=== PATIENT | female | born 1940 | race Caucasian/White ===

== ENCOUNTER 2016-09-01 15:00 | Inpatient (IN) | payer MEDICARE, OTHER ==
[~2016-09-01] VITALS: Ht 157.5 cm; Wt 73.6 kg
--- NOTE | ~2016-09-01 | PUL ---
PATIENT'S NAME: JANEE COOMBS [facility] AGE: 76 Y [address] ROOM: [address] [address] LOCATION: N ADMIT DATE: 09/08/2016 Pulmonary DISCHARGE DATE: 09/10/2016 FAMILY PHYSICIAN: Vincent Barrow MD ATTENDING PHYSICIAN: Gutierrez Murray NAME OF PROCEDURE: Nighttime Oximetry DATE OF PROCEDURE: September 09 to September 10, 2016 REASON FOR EXAM: Nocturnal hypoxemia RESULTS: Total recording time was 10 hours, 36 minutes, and 24 seconds. The total valid sampling time was 10 hours, 35 minutes, and 32 seconds. The highest pulse was 78 beats per minute, lowest pulse was 51 beats per minute, and mean pulse of 60 beats per minute. The highest SpO2 was 100%, lowest SpO2 was 71%, with mean SpO2 of 88.9%. The time with SpO2 less than 89% was 4 hours, 2 minutes, and 4 seconds which is 38% of the total valid sampling time. The desaturation index was 40.5. PHYSICIAN INTERPRETATION: The patient's meet Medicare criteria for nighttime oxygen category one. The patient has a very high desaturation event index. There is a high possibility of obstructive sleep apnea. Clinical correlation is recommended. MD ARNOLD AVENDANO/saroj /[id number] dtt: 09/21/16 1052 , Lenin Vines. dtd: 09/15/16 1119
--- NOTE | ~2016-09-01 | DS ---
PATIENT'S NAME: JANEE COOMBS [facility] AGE: 76 Y [address] ROOM: [place] [address] LOCATION: [facility] ADMIT DATE: 09/08/2016 Discharge Summary DISCHARGE DATE: 09/10/2016 FAMILY PHYSICIAN: Vincent Barrow MD ATTENDING PHYSICIAN: Gutierrez Murray PRIMARY DIAGNOSIS: Degenerative joint disease of the left knee. SECONDARY DIAGNOSES: 1. History of anxiety disorder. 2. History of stress incontinence. 3. Nocturnal hypoxia. 4. Hypercholesterolemia. 5. Osteopenia. 6. Hypertension. 7. History stage I breast cancer. 8. Obesity. 9. BMI of 30. PROCEDURE PERFORMED: Left total knee arthroplasty with computer navigation. HISTORY: The patient is a 76-year-old female, who presents with advanced left knee degenerative joint disease and associated severely compromised activities of daily living. The patient has decided to proceed with total knee arthroplasty after having been thoroughly counseled regarding the risks, benefits, limitations and alternatives. Please refer to the outpatient clinic notes and admission history and physical for this patient. HOSPITAL COURSE: The patient underwent a left total knee arthroplasty on 09/08/2016 without complications. General endotracheal anesthesia plus adductor canal block and periarticular local anesthesia was utilized. The patient received 24 hours of perioperative prophylactic antibiotics and remained hemodynamically stable, neurovascularly intact throughout the entire hospital course. The postoperative prophylactic deep venous thrombosis prophylaxis consisted of Xarelto 10 mg, early mobilization and pneumatic compression devices. Daily physical therapy for gait training, transfer training range of motion and quadriceps isometric exercises were received. The patient progressed well in physical therapy. On the date of discharge, 09/10/2016, the incision at the knee was healing well and showed no signs of infection. DISPOSITION: Home. DISCHARGE ACTIVITY: The patient is to bear weight as tolerated with range of motion and quadriceps isometric exercises as instructed. The operative PATIENT'S NAME: JANEE COOMBS [facility] AGE: 76 Y [address] ROOM: [place] [address] LOCATION: [facility] ADMIT DATE: 09/08/2016 Discharge Summary DISCHARGE DATE: 09/10/2016 FAMILY PHYSICIAN: Vincent Barrow MD ATTENDING PHYSICIAN: Gutierrez Murray extremity is to be elevated at least 90% of the day. There is to be sterile 4x4 gauze dressings to the incision daily. Dr. Murray is to be notified immediately if there is any increased pain, fevers, chills erythema or drainage. DISCHARGE MEDICATIONS: Include: 1. Xarelto 10 mg, take 1 tab p.o. daily for DVT prevention. 2. Nucynta 50 mg, take 1 tablet to 2 tablets every 4 hours as needed for pain. FOLLOWUP: Followup appointment is to be with Dr. Murray on 09/15/2016 for initial postoperative evaluation and x-rays at that time. RON HOYT FOR MD HERLINDA CODY/jimbol /[id number] d: 09/14/16 0858 t: 09/15/16 1109, DISCHARGE SUMMARY
--- NOTE | ~2016-09-01 | OR ---
PATIENT'S NAME: ELIZABETH CORTEZ [facility] AGE: 76 Y [address] ROOM: [address] [address] LOCATION: [facility] ADMIT DATE: 09/08/2016 OR/Procedure Report DISCHARGE DATE: FAMILY PHYSICIAN: Vincent Barrow MD ATTENDING PHYSICIAN: JUAN LUIS CASEY SURGEON: Juan Luis Casey MD RISK TECH: 1. RON Hay. 2. Emanuel Castro CST/GERMAN. DATE OF PROCEDURE: 09/08/2016 PREOPERATIVE DIAGNOSIS: Degenerative joint disease, left knee. POSTOPERATIVE DIAGNOSIS: Degenerative joint disease, left knee. OPERATION: Left total knee arthroplasty with computer navigation. ANESTHESIA: General endotracheal anesthesia plus adductor canal block plus periarticular local anesthesia (ropivacaine with epinephrine and Toradol). ESTIMATED BLOOD LOSS: Less than 10 mL. DRAIN: None. SPECIMEN: None. COMPLICATIONS: None. IMPLANT SYSTEM: Brilliant Triathlon. 1. Size 4 left posterior stabilized femoral component. 2. Size 3 universal modular tibial baseplate. 3. A 13 mm posterior stabilized size 3 X3 tibial polyethylene insert. 4. A 29 mm oval X3 patellar component. INDICATIONS FOR SURGERY: Elizabeth Cortez is a 76-year-old female who presents with advanced left knee degenerative joint disease and associated severely compromised activities of daily living. The patient has decided to proceed with knee replacement after having been thoroughly counseled regarding the associated risks, benefits, and limitations. We have specifically reviewed the risks and implications of infection, deep venous thrombosis, pulmonary embolism, mortality, neurovascular complications, blood transfusion (and associated potential for disease transmission or transfusion reaction), stiffness, instability, mechanical deterioration of the components (due to wear and or loosening), and the potential need for revision. We have also emphasized the importance of active involvement and compliance with post- operative physical therapy as a means of optimizing range of motion and PATIENT'S NAME: ELIZABETH CORTEZ [facility] AGE: 76 Y [address] ROOM: [address] [address] LOCATION: [facility] ADMIT DATE: 09/08/2016 OR/Procedure Report DISCHARGE DATE: FAMILY PHYSICIAN: Vincent Barrow MD ATTENDING PHYSICIAN: JUAN LUIS CASEY functional recovery. Informed consent has been granted. DESCRIPTION OF PROCEDURE: The patient was positioned supine after administration of anesthesia and prophylactic antibiotics. A well-padded pneumatic tourniquet was placed around the left proximal thigh, and the left lower extremity was prepped and draped with vigilant sterile technique. The patient's name as well as the intended operative side and procedure were confirmed with a verbal time-out involving myself, the circulating nurse, the scrub nurse, and the anesthesiologist. Examination under anesthesia demonstrated no active skin lesions or masses. There was a large effusion. There was no erythema. There was no abnormal warmth. Range of motion under anesthesia was from 6 degrees of hyperextension to 140 degrees of flexion. There was no ligamentous insufficiency. The left lower extremity was elevated and exsanguinated with an Esmarch wrap, and the pneumatic tourniquet was inflated to 300mmHg. The knee was approached through a longitudinal midline incision. A medial parapatellar arthrotomy was performed and the patella was everted. Examination of the joint space demonstrated a very large amount of benign-appearing translucent synovial fluid. There was no synovitis. There were no loose bodies. The cruciate ligaments were intact. There was full-thickness loss of articular cartilage throughout the entire medial femoral condyle and medial tibial plateau with the exception of a 15 mm central island of soft fibrocartilage at the central aspect of the medial tibial plateau and a 6 mm diameter of soft fibrocartilage at the central aspect of the medial femoral condyle. These atypical central islands were atypical, and there was surrounding full-thickness loss of articular cartilage with no interposed soft tissue. There was a 1 cm diameter region of full-thickness articular cartilage loss at the medial margin of the medial facet of the patella. There were small osteophytes at the superior and inferior margins of the patella. There was a 2 x 10 mm region of full- thickness articular cartilage loss at the central aspect of the femoral trochlea. There were large osteophytes at the medial and lateral margins of the femoral trochlea as well as at the medial femoral condyle. There was a small osteophyte at the medial tibial plateau. There was a 6 mm subchondral cyst at the posterior aspect of the medial tibial plateau. There were generalized grade 2 degenerative changes at the lateral femoral condyle and lateral tibial plateau. There was superficial fissuring at the medial half of the lateral tibial plateau. There was a small osteophyte at the lateral tibial plateau. There was high-grade partial-thickness articular cartilage loss at the central 25% of the patella. There was complex degenerative tearing of the medial meniscus. There was mild inner perimeter tearing at the lateral meniscus. PATIENT'S NAME: ELIZABETH CORTEZ [facility] AGE: 76 Y [address] ROOM: [id number] [place], [place] [address] LOCATION: [facility] ADMIT DATE: 09/08/2016 OR/Procedure Report DISCHARGE DATE: FAMILY PHYSICIAN: Vincent Barrow MD ATTENDING PHYSICIAN: JUAN LUIS CASEY Remnants of the menisci and cruciate ligaments were excised. The Ion Torrent computer navigation femoral tracker was pinned in place at the distal aspect of the femoral trochlea. Absence of motion between the femur and the tracking device was confirmed manually and visually. Femoral osseous landmarks were obtained in order to calibrate the computer navigation system. Landmarks included the center of rotation of the ipsilateral hip, the center-point of the distal femur, the femoral AP axis, 57 points on the medial femoral condyle articular surface, and 57 points on the lateral femoral condyle articular surface. The Ion Torrent computer navigation system was subsequently utilized to position the distal femoral resection block such that the distal femoral resection was performed perfectly perpendicular to the femoral mechanical axis. The distal femoral resection was performed with a enGene oscillating saw. The Ion Torrent computer navigation tibial tracker was pinned in place at the anterior aspect of the tibial plateau. Absence of motion between the tibia and the tracking device was confirmed manually and visually. Tibial osseous landmarks were obtained in order to calibrate the computer navigation system. Landmarks included the center-point of the tibial plateau, the AP tibial axis, 57 points on the medial tibial plateau articular surface, 57 points on the lateral tibial plateau articular surface, the medial malleolus, and the lateral malleolus. The Ion Torrent computer navigation system was subsequently utilized to position the proximal tibial resection block such that the proximal tibial resection was performed perfectly perpendicular to the tibial mechanical axis. The proximal tibial resection was performed with a WhenSoon Precision oscillating saw. Perpendicularity of the tibial resection with respect to the tibial shaft axis was reconfirmed by inserting a spacer- block attached to an extramedullary guide rolf. External rotation of the anterior and posterior femoral resections was set parallel to the epicondylar axis and carefully adjusted in order to create a rectangular flexion gap. The box resection was performed with a reciprocating saw. Anterior and posterior chamfer resections were performed with the oscillating saw. Posterior condyle osteophytes were excised with an osteotome. All other osteophytes were excised with a rongeur. Resection of all remnants of the menisci was reconfirmed. Flexion and extension gaps were confirmed to be symmetric and well balanced with a spacer-block technique. The patella resection was performed with an oscillating saw such that the composite thickness of the reconstructed patella was equivalent to the thickness of the chitina patella. Patella tracking was optimal, and there was no need for a lateral retinacular release. All trial components were removed and all prepared osseous surfaces were thoroughly irrigated with pulsatile saline lavage and dried prior to cementing PATIENT'S NAME: ELIZABETH CORTEZ [facility] AGE: 76 Y [address] ROOM: [address] [address] LOCATION: [facility] ADMIT DATE: 09/08/2016 OR/Procedure Report DISCHARGE DATE: FAMILY PHYSICIAN: Vincent Barrow MD ATTENDING PHYSICIAN: JUAN LUIS CASEY all three components in a single stage using WhenSoon Simplex cement containing pre-mixed tobramycin. All extruded excess cement was removed. The entire joint space was thoroughly inspected and thoroughly irrigated with bacteriostatic pulsatile saline lavage to assure that there was no residual debris of any sort. Final range of motion was from full extension (with no passive hyperextension) to 130 degrees of flexion. Patella tracking was reconfirmed to be optimal. There was excellent anteroposterior stability at 90 degrees of flexion. There was 1 mm of medial lift-off to valgus stress in full extension. There was 1 mm of lateral lift-off to varus stress in full extension. The arthrotomy was closed with multiple simple and [id number] interrupted #1 Vicryl. Subcutaneous tissues were thoroughly re-irrigated with bacteriostatic pulsatile saline lavage. Subcutaneous tissues were re- approximated with simple buried interrupted #0 Vicryl sutures. The skin was closed with simple buried interrupted 2-0 Vicryl sutures followed by surgical young. The dressing consisted of Xeroform gauze, 4x4 gauze, ABD pads and two 6-inch Alen Wraps. There were no intra-operative complications. It should be noted that the physician's shop assistant played an active, integral role throughout this entire operation. By providing expert retraction, they greatly facilitated and expedited safe and effective exposure of the distal femur, proximal tibia and patella for preparation and implantation of the components. They were also actively involved in the patient's positioning, prepping and draping, as well as wound closure. MD CRUZ CODY/marie /[id number] d: 09/08/161815 t: 09/10/162035, OPERATIVE SUMMARY
[~2016-09-01 15:00] MED LIST: ADVIL200 MG PO; ASPIRIN EC81 MG PO; CALCIUM600 MG PO; CELEXA20 MG PO; COLACE100 MG PO; DILAUDID 2MG(HYD2 MG PO; HYDRODIURIL25 MG PO; MIRALAX17 GM PO; NORCO 5-325 MG1 TAB PO; TOPROL XL 5050 MG PO; TYLENOL EXTRA500 MG PO; VALIUM2 MG PO; XANAX0.25 MG PO; XARELTO10 MG PO
[2016-09-02] MEDS ORDERED: FEMARA 2.5 MG2.5 MG PO (16:04)
[2016-09-02] MEDS ORDERED: VITAMIN D32000 UNIT PO (16:07)
--- NOTE | 2016-09-08 18:37 | NUR ---
Significant Event: pt alert and oriented. arrived on floor at 1705. pt cont with post op vital signs. had a general for jorge luis. wiggles toes well. pulses good. voided x 2 since recovery. iv flusid infusing. itchy eyes. family in the room. ice to knee. denies pain. Follow up:
--- NOTE | 2016-09-09 05:01 | NUR ---
Significant Event: Alert and oriented X3. Heart rate bradycardic in upper 50's. Sats at 96% on 2L 02. Pt deats to 79% on RA. On telemetry, no calls this shift. On etc02 monitor, elevated to 51 at beginning of shift and drowsy, has improved. Had c/o itching eyes, artificial tears given with improvement. Voiding without difficulty. Up to bathroom with 1 assist, gait belt and walker. CSM WNL. Dressing is CDI. IV @ 80 ml/hr to L) FA. Had 1 emesis of 300 ml after getting up for hte first time. Zofran given x1. Nucynta given X1 this shift for pain, Pt refuses offers of pain meds stating that she does not have pain. Will give another nucynta this am with Tylenol for anticipated pain. Follow up:
--- NOTE | 2016-09-09 11:15 | NUR ---
Introduced self/role to patient and her Jake, and daughter. Will have help at home. 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 Gave them a list of all the DME places in [place]. Daughter will call [employer] to get on reserved for tomorrow. Planning on home to tomorrow. Added my name to her marker board, will continue to follow.
--- NOTE | 2016-09-09 17:10 | NUR ---
Significant Event: Pt 93% oxygen on 1L NC. Oxygen decreases to upper 80s when on room air. Overnight trendox tonight. Pt up with one assist, voids without difficulty. Pain is 4/10 as of 1700. Tylenol and Nucynta given at 1630. Pt saline locked. CSM WNL. Telemetry in place. Plans to go home tomarrow with family. Dressing clean, dry, and intact. Follow up:
--- NOTE | 2016-09-09 18:30 | NUR ---
patient called software security consultant light, stated"she didn't feel good, light headed, denies nausea. aimee at 3 mm. BP 191/86. Dr. Sarmiento called and aware. Gave BP medicine that was held this am because of low blood pressure in am. patient returned to bed, used bsc, stated felt better once laying down. alert and orientated x 3.
--- NOTE | 2016-09-10 03:13 | NUR ---
Significant Event: A&Ox3, can become forgetful after pain medication. VSS on 1L O2, HTN, SBP:160s. Over night trendox ongoing. Nucenta and tylenol for pain control. CSM WNL. Patient was HTN at beginning of shift SBP:190s, initiated home dose of BP medication and BP came back down to the 150s-160s. Transfers with 1PA, walker/GB to bathroom. at bedside. Possible D/C to home today. Follow up:
[2016-09-10] MEDS ORDERED: TYLENOL EXTRA500 MG PO (13:18)
[2016-09-10] MEDS ORDERED: ARTIFICIAL TEAR15 ML OPHTH (13:23)
[2016-09-10] MEDS ORDERED: COLACE100 MG PO (13:25)
[2016-09-10] MEDS ORDERED: MIRALAX17 GM PO (13:32)
[2016-09-10] MEDS ORDERED: XARELTO10 MG PO (13:36)
[2016-09-10] MEDS ORDERED: OXYGEN M-15 NOSE (13:40)
[2016-09-10] MEDS ORDERED: NUCYNTA50 MG PO (13:50)
--- NOTE | 2016-09-10 15:24 | NUR ---
Pt states she is comfortable going home and with going home with oxygen. IV removed. Pt had bm today. pt 93% on room air. Pt refused pain medication this afternoon other than tylenol. Pt states pain is tolerable. Pt given prescriptions, appointment card and information packet. Pt able to ambulate w/o difficulty. Dressing changed this am. CSM's intact. Pt down to car in wheelchair with staff. Pt states she has all her belongings.
== END 2016-09-10 15:00 | disposition disaster alternative care site (69) | DRG 470 ==
LOC: G3N 09-08 09:22
PROVIDERS: ADMIT Orthopaedic Surgery
PROC: 0SRD0J9 Replacement of Left Knee Joint with Synthetic Substitute, Cemented, Open Approach (ICD-10-PCS; principal; 2016-09-08)
DX: M17.12 Unilateral primary osteoarthritis, left knee (principal); C50.919 Malignant neoplasm of unspecified site of unspecified female breast; I10 Essential (primary) hypertension; F32.9 Major depressive disorder, single episode, unspecified; N39.3 Stress incontinence (female) (male); E78.00 Pure hypercholesterolemia, unspecified; E55.9 Vitamin D deficiency, unspecified; E66.9 Obesity, unspecified; H91.90 Unspecified hearing loss, unspecified ear; H57.8 Other specified disorders of eye and adnexa; R09.02 Hypoxemia; I95.81 Postprocedural hypotension; R35.1 Nocturia; F41.9 Anxiety disorder, unspecified; Z79.82 Long term (current) use of aspirin; Z96.651 Presence of right artificial knee joint; Z68.30 Body mass index [BMI] 30.0-30.9, adult
CPT/HCPCS: C1713; C1776; J0690; J1885; J2001; J2250; J2300; J2405; J2795; J3010; J7030; J7120; P9045